=== PATIENT | female | born 1950 | race Caucasian/White ===

== ENCOUNTER → 2022-09-27 08:56 | Outpatient (BNVA) | payer OTHER, SELFPAY | PROVIDERS: PCP Nurse Practitioner Family; Referring Provider Nurse Practitioner Family; Visit Provider Physician Assistant Surgical ==

== ENCOUNTER 2022-11-01 10:41 | Outpatient (REF) | payer OTHER, SELFPAY | END 2022-11-01 10:42 | disposition home or self-care (01) | LOC: HO.LNP 10:41 | PROVIDERS: PCP Nurse Practitioner Family; Visit Provider Physician Assistant | DX: Z01.818 Encounter for other preprocedural examination (principal); E66.9 Obesity, unspecified; E03.9 Hypothyroidism, unspecified; E11.9 Type 2 diabetes mellitus without complications; Z98.84 Bariatric surgery status | CPT/HCPCS: 83013; 99202; 99211 ==

== ENCOUNTER 2022-11-13 09:58 | Outpatient (REF) | payer OTHER, SELFPAY ==
[2022-11-13 10:20] LABS: MANUAL DIFF FLAG NO
[2022-11-13 11:09] LABS: Basophils Absolute Auto 0.1 X10*3/uL (0.0-0.2); Basophils Percent Auto 2.3 % (0-2); Eosinophils Absolute Auto 0.2 X10*3/uL (0.0-0.4); Eosinophils Percent Auto 3.5 % (0-4); Lymphocytes Absolute Auto 1.6 X10*3/uL (1.2-4.9); Lymphocytes Percent Auto 37.4 % (20-40); Mean Corpuscular HGB Conc 30.3 g/dl (31.0-35.0); Mean Corpuscular Volume 79.1 fL (80.0-98.0); Mean Platelet Volume 9.3 fL (9.4-12.3); Monocytes Absolute Auto 0.4 X10*3/uL (0.1-1.2); Monocytes Percent Auto 9.1 % (2-11); Neutrophils Absolute Auto 2.1 x10*3/uL (2.0-8.3); Neutrophils Percent Auto 47.7 % (45-73); Platelet Count 471 X10*3/uL (160-400); Red Blood Count 4.17 X10*6/uL (4.20-5.50); Red Cell Distribution Width 17.2 % (11.0-16.0); White Blood Count 4.3 X10*3/uL (4.8-10.8)
[2022-11-13 11:52] LABS: Alanine Aminotransferase 22 U/L (0-31); Alkaline Phosphatase 101 U/L (39-117); Anion Gap 11 (12-20); Aspartate Amino Transferase 26 U/L (5-31); Bilirubin Total 0.4 mg/dL (0.0-1.0); Blood Urea Nitrogen 30 mg/dL (9-16); C Reactive Protein < 0.10 mg/dL (< or = 0.50); Calcium 9.8 mg/dL (8.4-10.2); Carbon Dioxide 24 mmol/L (22-29); Chloride 109 mmol/L (96-108); Cholesterol 283 mg/dL; Estimated Glomerular Filt Rate > 60; Glucose Random 89 mg/dL (60-115); HDL Cholesterol 67 mg/dL; Iron 32 mcg/dL (30-160); LDL Cholesterol Calculated 192 mg/dl; Percent Iron Saturation 8 % (15-50); Potassium 5.1 mmol/L (3.3-5.1); Sodium 139 mmol/L (135-145); Total Iron Binding Capacity 390 mcg/dL (228-428); Total Protein 7.2 g/dL (6.5-8.0); Triglycerides 122 mg/dL; Unsaturated Iron Binding 358 ug/dL
[2022-11-13 12:13] LABS: Ferritin 8 ng/mL (10-250); Insulin 6 uU/mL (2-29); TSH reflex Free T4 7.36 uIU/mL (0.32-4.0); Vitamin D 25-OH Total 23.2 ng/mL (>30)
[2022-11-13 12:15] LABS: Estimated Average Glucose 111 mg/dL; Folate 6.7 ng/mL (> or = 4.0); Hemoglobin A1c % 5.5 %; Vitamin B12 270 pg/mL (200-900)
[2022-11-13 13:22] LABS: Free T4 (Free Thyroxine) 0.98 ng/dL (0.71-1.85)
[2022-11-17 06:28] LABS: Zinc 79 mcg/dL (60-130)
[2022-11-19 14:58] LABS: Calcium (PTHI) 9.5 mg/dL (8.6-10.4); PTHI 112 pg/mL (16-77)
[2022-11-20 10:59] LABS: Vitamin B1 23 nmol/L (8-30)
[2022-11-20 14:33] LABS: Vitamin A 53 mcg/dL (38-98)
== END 2022-11-13 09:59 | disposition home or self-care (01) ==
LOC: HO.LAB 09:58
PROVIDERS: Visit Provider Physician Assistant
DX: Z01.818 Encounter for other preprocedural examination (principal); E03.9 Hypothyroidism, unspecified; E11.9 Type 2 diabetes mellitus without complications; E66.9 Obesity, unspecified; Z98.84 Bariatric surgery status
CPT/HCPCS: 36415; 80053; 80061; 82306; 82607; 82728; 82746; 83036; 83525; 83540; 83970; 84425; 84439; 84443; 84590; 84630; 85025; 86140

== ENCOUNTER 2022-11-16 12:13 | Outpatient (REF) | payer OTHER, SELFPAY ==
--- NOTE | ~2022-11-16 | XR_ITS ---
EXAMINATION: XR CHEST CLINICAL INFORMATION: Preprocedural examination. COMPARISON: None available. TECHNIQUE: 2 views of the chest were obtained. 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 Subtle focal haziness in the right lower lung. No pleural effusion or pneumothorax. No acute osseous abnormalities. Thoracic spondylosis. Visualized upper abdomen is within normal limits. XR/XR chest 2V IMPRESSION: 1. 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 Recommend correlation with a contrast-enhanced chest CT. 2. Subtle focal haziness in the right lower lung is nonspecific and could be related with artifact from overlying structures versus early infiltrate/aspiration.
--- NOTE | 2022-11-16 12:20 | ECG_ITS ---
Test Reason : PREOP Blood Pressure : / mmHG Vent. Rate : 059 BPM Atrial Rate : 059 BPM P-R Int : 142 ms QRS Dur : 076 ms QT Int : 404 ms P-R-T Axes : 051 -05 052 degrees QTc Int : 399 ms Sinus bradycardia with sinus arrhythmia Low voltage QRS Cannot rule out Anterior infarct , age undetermined Abnormal ECG No previous ECGs available Referred By: Anna Lopez Electronically Signed By:Roge Perez
== END 2022-11-16 12:14 | disposition home or self-care (01) ==
LOC: HO.XRAY 12:13
PROVIDERS: PCP Nurse Practitioner Family; Visit Provider Physician Assistant
DX: Z01.818 Encounter for other preprocedural examination (principal); E03.9 Hypothyroidism, unspecified; E11.9 Type 2 diabetes mellitus without complications; E66.9 Obesity, unspecified; Z98.84 Bariatric surgery status
CPT/HCPCS: 71046; 93005

== ENCOUNTER → 2022-11-16 12:20 | Outpatient (BNV) | payer OTHER, SELFPAY | PROVIDERS: PCP Nurse Practitioner Family; Visit Provider Internal Medicine Cardiovascular Disease | DX: Z01.810 Encounter for preprocedural cardiovascular examination (principal) | CPT/HCPCS: 93010 ==

== ENCOUNTER 2022-12-05 13:40 | Outpatient (AMB) | payer OTHER, SELFPAY ==
--- NOTE | 2022-12-05 14:02 | A.OFFVIS_ITS ---
Intake VS Expanded 12/05/22 14:31 Height 4 ft 11 in Weight 178 lb BMI 35.9 Intake Visit Reasons: (OV) Inital Nutrition SWL Allergies No Known Allergies Allergy (Verified 11/01/22 12:19) HPI Nutrition Presentation Details s/p open GBP with cholecystectomy at [facility] in 1999, post op stay 4-5 days.. Pre op weight about 354 lbs and lowest weight 160 lbs. No post op care since 6 months after surgery. Now wants revision, no n/v/reflux or pain. Her goal is to weigh about 130 lbs.? Reason for consult elevated BMI Diet Assmnt Details Coffee with light cream and equal does 2 shakes, 1 [employer] yogurt, and meal Exercise: one - knee pain . notes her last cortisol injection did nothing for her. Her goal is to have bariatric surgery so she can have her knee replacement surgery. Mammogram scheduled for 12/14 [facility] online classes: none , wasn't sure how to access them Dietary counseling reduction Meal frequency regular: snacks Lifestyle Food frequency Dairy: daily, Fruit: daily, Vegetables: daily and Meats/poultry/fish (protein): daily Diagnosis Nutrition problem #1 overweight/obesity As related to (etiology) #1 excess energy intake and physical inactivity As evidenced by (sign/symptom) #1 high BMI Monitoring/Goals Nutrition problem monitoring total energy intake, level of knowledge/skill, total PRO intake, total CHO intake, weight and oral fluids Outcome progress progressing Learning/Education Readiness to learn good Stages of change action Educational materials provided Yes Most Recent Diabetes Results: Cholesterol 283 mg/dL 11/13/22 HDL Cholesterol 67 mg/dL 11/13/22 Triglycerides 122 mg/dL 11/13/22 Creatinine 0.85 mg/dL (0.5-1.4) 11/13/22 Blood Urea Nitrogen 30 mg/dL (9-16) H 11/13/22 Sodium 139 mmol/L (135-145) 11/13/22 Potassium 5.1 mmol/L (3.3-5.1) 11/13/22 Chloride 109 mmol/L (96-108) H 11/13/22 Carbon Dioxide 24 mmol/L (22-29) 11/13/22 Calcium 9.8 mg/dL (8.4-10.2) 11/13/22 AST 26 U/L (5-31) 11/13/22 ALT 22 U/L (0-31) 11/13/22 Total Protein 7.2 g/dL (6.5-8.0) 11/13/22 Albumin 4.0 g/dL (3.5-5.0) 11/13/22 PFSH Surgical History (Updated 11/01/22 @ 11:58 by MINAL WymanC) Hx of section Hx of cholecystectomy Hx of gastric bypass Social History (Updated 09/27/22 @ 09:05 by ALEXA Cruz) Alcohol intake: never Patient Tobacco Use Status: Never used Tobacco Assessment & Plan Assessment & Plan (1) Diabetes mellitus: Code(s): E11.9 - Type 2 diabetes mellitus without complications (2) Obesity (BMI 30-39.9): Code(s): E66.9 - Obesity, unspecified Patient Instructions: Will continue her nutrition plan and complete online classes . will follow up 01/02 at 10:30am Coding Level of Care Code Nutr Indiv Intake (96629) Diagnoses Diabetes mellitus E11.9 Obesity (BMI 30-39.9) E66.9 Time Spent (min) 45
[2022-12-05 14:31] VITALS: BMI 35.9
== END 2022-12-05 14:48 | disposition home or self-care (01) ==
PROVIDERS: PCP Nurse Practitioner Family; Visit Provider Dietitian, Registered
DX: E11.9 Type 2 diabetes mellitus without complications (principal); E66.9 Obesity, unspecified

== ENCOUNTER → 2022-12-05 13:40 | Outpatient (BNVA) | payer OTHER, SELFPAY | PROVIDERS: PCP Nurse Practitioner Family; Visit Provider Dietitian, Registered | DX: E66.9 Obesity, unspecified (principal); E11.9 Type 2 diabetes mellitus without complications; Z68.35 Body mass index [BMI] 35.0-35.9, adult | CPT/HCPCS: 97802 ==

== ENCOUNTER 2022-12-11 09:07 | Outpatient (REF) | payer OTHER, SELFPAY ==
--- NOTE | ~2022-12-11 | US_ITS ---
EXAMINATION: US COMPLETE ABDOMEN WITH LIVER ELASTOGRAPHY CLINICAL INFORMATION: Obesity COMPARISON: None available. TECHNIQUE: Real-time imaging of the abdominal viscera. Noninvasive ultrasound liver fibrosis assessment is performed using [employer] ElastPQ point quantification shear wave elastography (2D-SWE) with a C5-2 MHz transducer. Multiple elastography samples are obtained. FINDINGS: PANCREAS: Normal. ABDOMINAL AORTA: The proximal, middle, and distal aortic segments are normal in caliber. There is atherosclerotic disease. INFERIOR VENA CAVA: Visualized portions are normal. LIVER: The liver is slightly enlarged. Liver contour and echogenicity are normal. No focal lesion or intrahepatic biliary duct dilatation. The right lobe measures 18 cm in length. The left lobe measures 8 cm in length. Portal flow is normal/hepatopedal Shear wave liver elastography median stiffness is 1.5 m/s (reference: normal median stiffness is 1.3 m/s or less). IQR/median stiffness to assess sampling precision is 0.02 (reference: good quality data set is IQR/median stiffness of 0.15 or less). GALLBLADDER: Not seen. Question surgically removed. COMMON BILE DUCT: Slightly dilated measuring 0.8-1.2 cm in diameter. RIGHT KIDNEY: Normal. No hydronephrosis. No renal calculi or focal parenchymal lesions. The kidney measures 10 cm in maximum dimension. Small cyst in the pole measuring 1 cm. No imaging follow-up recommended. LEFT KIDNEY: Normal. No hydronephrosis. No renal calculi or focal parenchymal lesions. The kidney measures 10 cm in maximum dimension. SPLEEN: Normal. The spleen measures 9 cm in maximum dimension. FREE FLUID: None. US/US abdomen comp w elastography IMPRESSION: 1. Impression: Slightly enlarged liver. Gallbladder not seen, question surgically removed. Slightly dilated common bile duct. This may be normal postcholecystectomy. Correlation with surgical history recommended. 2. Liver elastography: Limited due to liver sampling. Liver stiffness not significantly increased. REFERENCE: Society of Radiologists in Ultrasound Liver Stiffness Thresholds (2020): LIVER STIFFNESS THRESHOLDS: *Liver Stiffness equal or less than 1.3 m/s: High probability of being normal. *Liver Stiffness less than 1.7 m/s: In the absence of other known clinical signs, rules out compensated advanced chronic liver disease. *Liver Stiffness 1.7-2.1 m/s: Suggestive of compensated advanced chronic liver disease but need further test for confirmation. *Liver Stiffness over 2.1 m/s: Rules in compensated advanced chronic liver disease. *Liver Stiffness over 2.4 m/s: Suggestive of clinically significant portal hypertension. QUALITY OF DATA SET: *IQR/Median value equal or less than 0.15 implies a quality data set. *IQR/Median value over 0.15 implies a poor quality data set. SIGNIFICANT CHANGE FROM PRIOR EXAM: Significant change if liver stiffness measurement is 10% or greater from prior exam. OTHER CONSIDERATIONS: The stage of liver fibrosis may be overestimated in the setting of acute hepatitis, liver inflammation, elevated liver function tests, hepatic vascular congestion, obstructive cholestasis, non-fasting state, and infiltrative diseases such as amyloidosis and lymphoma. In some patients with NAFLD, the liver stiffness thresholds for compensated advanced chronic liver disease may be lower. In causes other than viral hepatitis and NAFLD, liver stiffness thresholds are not well established.
== END 2022-12-11 09:08 | disposition home or self-care (01) ==
LOC: HO.US 09:07
PROVIDERS: PCP Nurse Practitioner Family; Visit Provider Physician Assistant
DX: Z01.818 Encounter for other preprocedural examination (principal); E66.9 Obesity, unspecified; E11.9 Type 2 diabetes mellitus without complications; E03.9 Hypothyroidism, unspecified; Z98.84 Bariatric surgery status
CPT/HCPCS: 76705; 76981

== ENCOUNTER 2022-12-12 07:54 | Outpatient (REF) | payer OTHER, SELFPAY ==
--- NOTE | ~2022-12-12 | FL_ITS ---
EXAMINATION: XR FLUOROSCOPY UPPER GI WITH AIR CLINICAL INFORMATION: Preop. Obesity. COMPARISON: None available. TECHNIQUE: Upper GI was performed using thin and thick barium and effervescent granules FINDINGS: There is severe gastroesophageal reflux. There are tertiary contractions questionable for abnormal esophageal motility. There is a small sliding-type hiatal hernia. There are postoperative changes from gastric bypass. Only a small amount of remaining stomach is seen. There is no evidence of gastric outlet obstruction. No fold thickening, mass or ulcer is appreciated. FLUOROSCOPY TIME: 1 minute DOSE AREA PRODUCT: 9.5 juarez per centimeter squared. Total dose 36 mgy. 30 saved fluoroscopic images. FL/FL upper GI w air IMPRESSION: Severe gastroesophageal reflux. Tertiary esophageal contractions questionable for abnormal esophageal motility. Small sliding-type hiatal hernia. Postop change from gastric bypass with very small remaining stomach.
== END 2022-12-12 07:55 | disposition home or self-care (01) ==
LOC: HO.XRAY 07:54
PROVIDERS: PCP Nurse Practitioner Family; Visit Provider Physician Assistant
DX: Z01.818 Encounter for other preprocedural examination (principal); E03.9 Hypothyroidism, unspecified; E11.9 Type 2 diabetes mellitus without complications
CPT/HCPCS: 74246

== ENCOUNTER → 2022-12-12 07:54 | Outpatient (BNV) | payer OTHER, SELFPAY | PROVIDERS: PCP Nurse Practitioner Family; Visit Provider Radiology Diagnostic Radiology | DX: Z01.818 Encounter for other preprocedural examination (principal) | CPT/HCPCS: 74246 ==